=== PATIENT | female | born 1985 | race American Indian/Alaskan Native ===

== ENCOUNTER 2017-08-29 16:16 | Emergency (ER) | payer MEDICARE ==
--- NOTE | 2017-08-29 17:31 | XRay Report ---
FINAL REPORT EXAM: XR CHEST ROUTINE 2V HISTORY: cough TECHNIQUE: 2 view examination of the chest PRIORS: None FINDINGS: Limited examination due to prominent soft tissue attenuation. There is no visible pulmonary consolidation, pleural effusion, or pneumothorax. Cardiac silhouette size is normal without vascular congestion. No visible acute pathology in the regional skeleton. IMPRESSION: No evidence of acute cardiopulmonary disease in the visible chest
[2017-08-29] MEDS ORDERED: DUONEB *Not for PRN Use IH ONE ×2 (21:26→21:30)
--- NOTE | 2017-08-29 22:15 | Emergency Department Report ---
- General Chief Complaint: Upper Respiratory Infection Stated Complaint: CHEST AND BACK PAIN Time Seen by Provider: 08/29/17 20:56 Source: patient Mode of arrival: Ambulatory Limitations: No Limitations - History of Present Illness Initial Comments: 32-year-old female past medical history obesity, obstructive sleep apnea, smoker presents with complaint of 2 weeks of cough. Denies fever chills nausea vomiting abdominal pain. Although triage note says chest pain patient relates that she experiences discomfort after coughing but has no chest pain otherwise. States she has been having coughing fits for 2 weeks. Denies any recent travel denies sick contacts. Cough is nonproductive and states she has been using [id number] cough medicines with minimal relief of her cough. Patient is awake alert and oriented 3 does not appear to be in acute distress nontoxic appearing ambulatory. No audible wheezing or stridor no visible respiratory retractions. Denies orthopnea no paroxysmal nocturnal dyspnea. MD Complaint: cough Onset/Timin -: week(s) Severity: moderate Improves With: nothing Worsens With: nothing - Related Data Home Medications Medication Instructions Recorded Confirmed Last Taken Lisinopril [Zestril] 40 mg PO DAILY 08/29/17 08/29/17 08/29/17 amLODIPine [Norvasc] 10 mg PO DAILY 08/29/17 08/29/17 08/29/17 cloNIDine [Catapres] 0.2 mg PO DAILY 08/29/17 08/29/17 08/29/17 Previous Rx's Medication Instructions Recorded Last Taken Type ALBUTEROL Inhaler [ProAir HFA 2 puff IH QID PRN #1 inhalation 08/29/17 Unknown Rx Inhaler] Azithromycin [Zithromax Z-FILIPE] 250 mg PO QDAY #6 tablet 08/29/17 Unknown Rx Codeine Phosphate/Guaifenesin 10 ml PO Q6H PRN #1 liquid 08/29/17 Unknown Rx [Guaifen-Codeine 200-20 mg/10Ml] Famotidine [Pepcid] 20 mg PO BID PRN #30 tablet 08/29/17 Unknown Rx Naproxen 250 mg PO BID PRN #20 tablet 08/29/17 Unknown Rx predniSONE [Deltasone] 20 mg PO QDAY #5 tab 08/29/17 Unknown Rx Allergies Allergy/AdvReac Type Severity Reaction Status Date / Time cyclobenzaprine AdvReac Nausea Verified 08/29/17 16:24 [From Flexeril] ED Review of Systems ROS: Stated complaint: CHEST AND BACK PAIN Other details as noted in HPI Constitutional: denies: chills, fever Eyes: denies: eye pain, eye discharge, vision change ENT: denies: ear pain, throat pain Respiratory: cough (patient reports 2 weeks of cough). denies: shortness of breath, wheezing Cardiovascular: denies: chest pain, palpitations Endocrine: no symptoms reported Gastrointestinal: denies: abdominal pain, nausea, diarrhea Genitourinary: denies: urgency, dysuria, discharge Musculoskeletal: denies: back pain, joint swelling, arthralgia Skin: denies: rash, lesions Neurological: denies: headache, weakness, paresthesias Psychiatric: denies: anxiety, depression Hematological/Lymphatic: denies: easy bleeding, easy bruising ED Past Medical Hx - Past Medical History Hx Hypertension: Yes Additional medical history: leaking valve - Surgical History Additional Surgical History: sweat glands removed, tubal ligation, hernia repair. - Social History Smoking Status: Current Every Day Smoker Substance Use Type: Alcohol - Medications Home Medications: Home Medications Medication Instructions Recorded Confirmed Last Taken Type ALBUTEROL Inhaler [ProAir HFA 2 puff IH QID PRN #1 inhalation 08/29/17 Unknown Rx Inhaler] Azithromycin [Zithromax Z-FILIPE] 250 mg PO QDAY #6 tablet 08/29/17 Unknown Rx Codeine Phosphate/Guaifenesin 10 ml PO Q6H PRN #1 liquid 08/29/17 Unknown Rx [Guaifen-Codeine 200-20 mg/10Ml] Famotidine [Pepcid] 20 mg PO BID PRN #30 tablet 08/29/17 Unknown Rx Lisinopril [Zestril] 40 mg PO DAILY 08/29/17 08/29/17 08/29/17 History Naproxen 250 mg PO BID PRN #20 tablet 08/29/17 Unknown Rx amLODIPine [Norvasc] 10 mg PO DAILY 08/29/17 08/29/17 08/29/17 History cloNIDine [Catapres] 0.2 mg PO DAILY 08/29/17 08/29/17 08/29/17 History predniSONE [Deltasone] 20 mg PO QDAY #5 tab 08/29/17 Unknown Rx ED Physical Exam - General Limitations: No Limitations General appearance: alert, in no apparent distress - Head Head exam: Present: atraumatic, normocephalic - Eye Eye exam: Present: normal appearance, PERRL, EOMI - ENT ENT exam: Present: mucous membranes moist - Neck Neck exam: Present: normal inspection - Respiratory Respiratory exam: Present: normal lung sounds bilaterally. Absent: respiratory distress - Cardiovascular Cardiovascular Exam: Present: regular rate, normal rhythm. Absent: systolic murmur, diastolic murmur, rubs, gallop - GI/Abdominal GI/Abdominal exam: Present: soft, normal bowel sounds - Extremities Exam Extremities exam: Present: normal inspection - Back Exam Back exam: Present: normal inspection - Neurological Exam Neurological exam: Present: alert, oriented X3 - Psychiatric Psychiatric exam: Present: normal affect, normal mood - Skin Skin exam: Present: warm, dry, intact, normal color. Absent: rash ED Course Vital Signs 08/29/17 08/29/17 08/29/17 16:22 19:46 22:30 Temperature 98.5 F Pulse Rate 102 H 68 95 H Respiratory 20 18 18 Rate Blood Pressure 161/96 110/65 Blood Pressure 165/95 [Left] O2 Sat by Pulse 99 100 97 Oximetry ED Medical Decision Making - Medical Decision Making A/P: Acute bronchitis 1-prednisone, albuterol inhaler, Z-Filipe, Pepcid, symptomatic treatment, short course codeine cough syrup 2-follow-up with primary doctor 3-chest x-ray unremarkable Critical care attestation.: If time is entered above; I have spent that time in minutes in the direct care of this critically ill patient, excluding procedure time. ED Disposition Clinical Impression: Acute bronchitis Qualifiers: Bronchitis organism: unspecified organism Qualified Code(s): J20.9 - Acute bronchitis, unspecified Disposition: DC-01 TO HOME OR SELFCARE Is pt being admited?: No Does the pt Need Aspirin: No Condition: Stable Instructions: Acute Bronchitis (ED), Cold Symptoms (ED) Prescriptions: ALBUTEROL Inhaler [ProAir HFA Inhaler] 2 puff IH QID PRN #1 inhalation PRN Reason: Shortness Of Breath Azithromycin [Zithromax Z-FILIPE] 250 mg PO QDAY #6 tablet Codeine Phosphate/Guaifenesin [Guaifen-Codeine 200-20 mg/10Ml] 10 ml PO Q6H PRN #1 liquid PRN Reason: Cough Famotidine [Pepcid] 20 mg PO BID PRN #30 tablet PRN Reason: Cough Naproxen 250 mg PO BID PRN #20 tablet PRN Reason: Cough predniSONE [Deltasone] 20 mg PO QDAY #5 tab Referrals: Brianna ZAVALA MD [Primary Care Provider] - 3-5 Days Forms: Accompanied Note, Work/School Release Form(ED) Time of Disposition: 22:14
[2017-08-29 23:04] VITALS: BP 165/95
== END 2017-08-29 22:30 | disposition home or self-care (01) ==
LOC: ED 16:16
DX: J20.9 Acute bronchitis, unspecified (principal); I10 Essential (primary) hypertension; F17.200 Nicotine dependence, unspecified, uncomplicated; Z88.8 Allergy status to other drugs, medicaments and biological substances
CPT/HCPCS: 71020

== ENCOUNTER 2017-12-11 06:01 | Emergency (ER) | payer MEDICARE ==
[2017-12-11 07:03] VITALS: BP 97/55
[2017-12-11 07:49] LABS: Basophils % (Auto) 0.6 % (0.0-1.8); Eosinophils # (Auto) 0.2 K/mm3 (0.0-0.4); Eosinophils % (Auto) 3.1 % (0.0-4.3); Hematocrit 40.5 % (30.3-42.9); Hemoglobin 13.5 gm/dl (10.1-14.3); Lymphocytes # (Auto) 2.2 K/mm3 (1.2-5.4); Lymphocytes % (Auto) 34.1 % (13.4-35.0); Mean Corpuscular HGB Conc 33 % (30-34); Mean Corpuscular Hemoglobin 27 pg (28-32); Mean Corpuscular Volume 81 fl (79-97); Monocytes # (Auto) 0.3 K/mm3 (0.0-0.8); Monocytes % (Auto) 4.9 % (0.0-7.3); Platelet Count 355 K/mm3 (140-440); Red Blood Count 5.02 M/mm3 (3.65-5.03); Red Cell Distribution Width 15.4 % (13.2-15.2)
[2017-12-11 07:57] LABS: INR 0.89 (0.87-1.13)
[2017-12-11 08:34] LABS: Partial Thromboplastin Time 30.3 Sec. (24.2-36.6)
[2017-12-11 09:20] LABS: Alanine Aminotransferase 16 units/L (7-56); Albumin 4.3 g/dL (3.9-5); BUN/Creatinine Ratio 13; Blood Urea Nitrogen 14 mg/dL (7-17); Calcium 9.3 mg/dL (8.4-10.2); Hemolysis Index 3; Lipase 28 units/L (13-60)
== END 2017-12-11 13:00 | disposition left against medical advice (07) ==
LOC: ED 06:01
DX: Z53.21 Procedure and treatment not carried out due to patient leaving prior to being seen by health care provider (principal)
CPT/HCPCS: 36415; 80053; 83690; 85025; 85610; 85730; 86850; 86900; 86901